=== PATIENT | male | born 1950 | race Caucasian/White ===

== ENCOUNTER → 2020-10-28 | Outpatient (CLI) | payer MEDICARE ==
[~2020-10-28] MED LIST: REGADENOSON 0.4 MG/5 ML SYRINGE ONE
== END | disposition home or self-care (01) ==
LOC: CFH 11:54
PROVIDERS: ATTEND Internal Medicine Clinical Cardiac Electrophysiology
DX: I10 Essential (primary) hypertension (principal); I25.9 Chronic ischemic heart disease, unspecified; Z95.1 Presence of aortocoronary bypass graft
CPT/HCPCS: 78452; 93017; A9502; J2785

== ENCOUNTER 2021-01-20 13:57 | Emergency (ER) | payer MEDICARE ==
[~2021-01-20] VITALS: Ht 182.9 cm; Wt 109.0 kg
--- NOTE | 2021-01-20 14:08 | NUR ---
ASSUMED CARE OF PATIENT. PATIENT BIB [facility] FOR CHADWICKS CHEST PAIN THAT COMES AND GOES FOR 2-3 WEEKS 02/15. VS STABLE. EKG DONE. SENIOR DATA SCIENTIST ON. NSR NOTED. CALL LIGHT IN PLACE. WILL CONTINUE TO MONITOR.
--- NOTE | 2021-01-20 14:20 | NUR ---
DR SWAIN IN ROOM
[2021-01-20 14:52] LABS: BASOPHILS % (AUTO) 1 % (0-1); EOSINOPHILS % (AUTO) 2 % (1-7); LYMPHOCYTES % (AUTO) 17 % (22-44); MEAN CORPUSCULAR HEMOGLOBIN 32.1 pg (27.5-34.5); MEAN CORPUSCULAR HGB CONC 34.4 g/dL (33.2-36.2); MEAN PLATELET VOLUME 9.1 fL (7.4-10.4); MONOCYTES % (AUTO) 7 % (2-9); NEUTROPHILS % (AUTO) 73 % (42-75); PLATELET COUNT 161 x10^3/uL (130-400); RED BLOOD COUNT 4.24 x10^6/uL (4.38-5.82); RED CELL DISTRIBUTION WIDTH 13.6 % (9.4-14.8)
--- NOTE | 2021-01-20 14:54 | NUR ---
BEDSIDE REPORT GIVEN TO OJ SINGER
--- NOTE | 2021-01-20 14:54 | NUR ---
Bedside report from OJ Thornton. Assumed care.
[2021-01-20 14:57] LABS: ALBUMIN 3.8 g/dL (3.4-5.0); ANION GAP 8 mmol/L (5-15); CALCIUM 8.8 mg/dL (8.5-10.1); CHLORIDE 99 mmol/L (98-107); MD NO
[2021-01-20 15:01] LABS: TROPONIN I < 0.015 ng/mL (0.000-0.045)
[2021-01-20 15:29] VITALS: BP 126/61
--- NOTE | 2021-01-20 15:45 | NUR ---
Dr. Johnson at bedside.
--- NOTE | 2021-01-20 16:06 | NUR ---
Pt agrees with and understands discharge plan and instructions.
== END 2021-01-20 16:15 | disposition home or self-care (01) ==
LOC: ED 16:00
DX: R07.89 Other chest pain (principal); R94.31 Abnormal electrocardiogram [ECG] [EKG]; E11.9 Type 2 diabetes mellitus without complications; Z87.891 Personal history of nicotine dependence
CPT/HCPCS: 36415; 71045; 80048; 82040; 83880; 84484; 85025; 93005; 99285